=== PATIENT | male | born 1995 | race American Indian/Alaskan Native ===

== ENCOUNTER 2020-12-16 05:57 | Emergency (ER) | payer OTHER ==
[2020-12-16] MEDS ORDERED: TETANUS,DIPH,PERTUSS(ACELL) VACCINE 0.5 ML SYRINGE IM ONE (06:27)
--- NOTE | 2020-12-16 06:29 | Emergency Department Report ---
ED General Adult HPI - General Chief complaint: Medical Clearance Stated complaint: RT FOOT INJURY Time Seen by Provider: 12/16/20 06:24 Source: patient Mode of arrival: Ambulatory Limitations: No Limitations - History of Present Illness Initial comments: 25-year-old -[place] male patient presents with complaints of right foot puncture wound after stepping on a nail today. Patient does admit the nail went through his shoe. Patient is unsure of his last tetanus vaccination. He denies any current pain or bleeding. No numbness or tingling in his foot per patient. -: Sudden - Related Data Previous Rx's Medication Instructions Recorded Last Taken Type cephALEXin [Keflex] 500 mg PO Q12HR 3 Days #9 cap 12/16/20 Unknown Rx levoFLOXacin [Levaquin TAB] 500 mg PO QDAY 3 Days #3 tablet 12/16/20 Unknown Rx Allergies Allergy/AdvReac Type Severity Reaction Status Date / Time shellfish derived AdvReac Hives Verified 12/16/20 06:34 ED Review of Systems ROS: Stated complaint: RT FOOT INJURY Other details as noted in HPI Constitutional: denies: malaise Musculoskeletal: denies: joint swelling, arthralgia Skin: denies: change in color Neurological: denies: numbness, paresthesias, abnormal gait ED Past Medical Hx - Past Medical History Previous Medical History?: No - Surgical History Past Surgical History?: No - Social History Smoking Status: Never Smoker - Medications Home Medications: Home Medications Medication Instructions Recorded Confirmed Last Taken Type cephALEXin [Keflex] 500 mg PO Q12HR 3 Days #9 cap 12/16/20 Unknown Rx levoFLOXacin [Levaquin TAB] 500 mg PO QDAY 3 Days #3 tablet 12/16/20 Unknown Rx ED Physical Exam - General Limitations: No Limitations General appearance: alert, in no apparent distress - Head Head exam: Present: atraumatic, normocephalic - Eye Eye exam: Present: normal appearance - Respiratory Respiratory exam: Absent: respiratory distress - Cardiovascular Cardiovascular Exam: Present: regular rate - Extremities Exam Extremities exam: Present: full ROM, other (Tiny nonbleeding nonswollen, nonerythemic puncture wound noted to right forefoot; no foreign bodies or drainage noted) - Neurological Exam Neurological exam: Present: alert, oriented X3 - Psychiatric Psychiatric exam: Present: normal affect, normal mood - Skin Skin exam: Present: warm, dry, intact, normal color. Absent: rash ED Course Vital Signs 12/16/20 06:18 Temperature 98.0 F Pulse Rate 68 Respiratory 16 Rate Blood Pressure 127/68 O2 Sat by Pulse 99 Oximetry ED Medical Decision Making - Medical Decision Making 25-year-old -[place] male patient presents with complaints of right foot puncture wound after stepping on a nail today. Patient does admit the nail went through his shoe. Patient is unsure of his last tetanus vaccination. He denies any current pain or bleeding. No numbness or tingling in his foot per patient. Given nail went through shoe, will treat prophylactically with Keflex and Levaquin. Patient to follow-up with his primary care doctor in 3 to 5 days. Discussed wound care and signs and symptoms that should prompt immediate return to the emergency department in detail with patient who verbalizes understanding. Patient is well-appearing his vitals are normal he is stable for discharge home. Critical care attestation.: If time is entered above; I have spent that time in minutes in the direct care of this critically ill patient, excluding procedure time. ED Disposition Clinical Impression: Puncture wound of right foot Disposition: [id number] TO HOME OR SELFCARE Is pt being admited?: No Condition: Stable Instructions: Puncture Wound Prescriptions: cephALEXin [Keflex] 500 mg PO Q12HR 3 Days #9 cap levoFLOXacin [Levaquin TAB] 500 mg PO QDAY 3 Days #3 tablet Referrals: PRIMARY CARE, [Primary Care Provider] - 3-5 Days Forms: Work/School Release Form(ED)
[2020-12-16] MEDS ORDERED: dilTIAZem 25 MG/5 ML INJ ONE (06:39)
[2020-12-16 07:27] VITALS: BP 127/68
== END 2020-12-16 06:44 | disposition home or self-care (01) ==
LOC: ED 05:57
DX: S91.331A Puncture wound without foreign body, right foot, initial encounter (principal); Z79.899 Other long term (current) drug therapy; Z91.013 Allergy to seafood; W22.8XXA Striking against or struck by other objects, initial encounter; Y93.89 Activity, other specified; Y92.89 Other specified places as the place of occurrence of the external cause; Y99.8 Other external cause status
CPT/HCPCS: 90471; 90715; 99282